=== PATIENT | female | born 1950 | race American Indian/Alaskan Native ===

== ENCOUNTER 2017-09-12 19:04 | Emergency (ER) | payer MEDICARE ==
[2017-09-12 19:43] VITALS: BP 130/70
[2017-09-12 20:09] LABS: Basophils % (Auto) 0.4 % (0.0-1.8); Eosinophils % (Auto) 0.5 % (0.0-4.3); Hematocrit 41.1 % (30.3-42.9); Hemoglobin 13.3 gm/dl (10.1-14.3); Mean Corpuscular HGB Conc 32 % (30-34); Mean Corpuscular Hemoglobin 27 pg (28-32); Mean Corpuscular Volume 83 fl (79-97); Platelet Count 359 K/mm3 (140-440); Red Blood Count 4.93 M/mm3 (3.65-5.03); Red Cell Distribution Width 15.6 % (13.2-15.2); White Blood Count 11.3 K/mm3 (4.5-11.0)
[2017-09-12 20:35] LABS: Calcium 8.8 mg/dL (8.4-10.2); Chloride 96.4 mmol/L (98-107); Potassium 5.8 mmol/L (3.6-5.0)
== END 2017-09-13 02:14 | disposition left against medical advice (07) ==
LOC: ED 19:04
DX: R73.9 Hyperglycemia, unspecified (principal); Z53.21 Procedure and treatment not carried out due to patient leaving prior to being seen by health care provider
CPT/HCPCS: 36415; 80048; 82805; 82962; 85025